=== PATIENT | male | born 1995 | race Caucasian/White ===

== ENCOUNTER 2017-06-07 16:10 | Emergency (ER) | payer OTHER ==
[~2017-06-07] VITALS: Ht 165.1 cm; Wt 67.8 kg
[2017-06-07 16:17] VITALS: TEMP 37.6; Ht 165.1 cm; Wt 67.8 kg
[2017-06-07 17:10] VITALS: O2SAT 96
[2017-06-07] MEDS ORDERED: KETOROLAC TROMETHAMINE 30 MG/ML VIAL IV STA (17:18)
[2017-06-07] MEDS ORDERED: SODIUM CHLORIDE 0.9% 1000ML 1,000 ML IV ONE (17:30)
[2017-06-07 18:20] LABS: BASO % 0.1 %; BASO ABS # 0.01 K/uL (0-0.2); COMPLETE YES; HEMATOCRIT 49.4 % (42-52); IG% 0.2 %; LYMPH % 11.5 %; LYMPH ABS # 1.17 K/uL (1.2-3.4); MEAN CELL VOLUME 85.6 fL (80-100); MEAN CORPUSCULAR HEMOGLOBIN 30.2 pg (25-34); MEAN CORPUSCULAR HGB CONC 35.2 g/dl (32-36); MEAN PLATELET VOLUME 9.8 fL (7.4-10.4); MONO % 3.7 %; NEUT % 84.5 %; PLATELET COUNT 315 K/uL (130-400); RED BLOOD COUNT 5.77 M/uL (4.7-6.1); WHITE BLOOD COUNT 10.19 K/uL (4.8-10.8)
[2017-06-07 18:24] LABS: POINT OF CARE TROPONIN I < 0.030 ng/ml (0-0.045)
[2017-06-07 18:39] LABS: BUN/CREATININE RATIO 6.7 (10-20); CALCIUM 9.3 mg/dl (8.5-10.1); MAGNESIUM 2.4 mg/dl (1.8-2.4); POTASSIUM 3.6 mmol/L (3.5-5.1)
[2017-06-07 18:50] LABS: ALB/GLOB RATIO 1.4 (0.9-2); THYROID STIMULATING HORMONE 1.06 uIu/ml (0.300-4.500)
[2017-06-07 19:07] VITALS: BP 144/78; PULSE 108; O2SAT 98
--- NOTE | 2017-06-07 22:02 | EMERGENCY ROOM VISIT NOTE ---
History First contact with patient: 17:04 Chief Complaint: CHEST PAIN Stated Complaint: CHEST PAIN- [facility] REFERRED Nursing Triage Summary: Pt. reports chest pain and shortness of breath with activity starting on tuesday. History of Present Illness The patient is a 21 year old male who presents to the Emergency Room with complaints of chest pain and shortness of breath after wrestling with a friend 2 days ago. The patient states that he has central chest pain without radiation as well as some shortness of breath. The patient went to an urgent care clinic just a few hours ago where EKG and chest x-ray were normal. He was referred to the ER for further evaluation. The patient does report traveling to [place] in the past 2 months. He does not have a history of DVT or PE. No fever or recent illness. He has not taken anything [id number] for his discomfort which he rates an intermittent 7/10. Review of Systems More than 10 systems were reviewed and otherwise negative with the exception of history of present illness. Past Medical/Surgical History No chronic medical disease Family History No pertinent family history Social History Smoking Status: Never Smoker Current/Historical Medications No Active Prescriptions or Reported Meds Physical Exam Vital Signs Date Time Temp Pulse Resp B/P (MAP) Pulse Ox O2 Delivery O2 Flow Rate FiO2 06/07/17 19:07 108 18 144/78 98 06/07/17 17:55 100 24 153/68 99 Room Air 06/07/17 17:22 90 06/07/17 17:10 96 Room Air 06/07/17 17:10 96 Room Air 06/07/17 16:17 37.6 106 18 155/77 97 Room Air Pain Rating (0-10): 0 Physical Exam VITALS: Vitals are noted on the nurse's note and reviewed by myself. Vital signs stable. GENERAL: Well-developed, well-nourished, white male, who is in no acute distress and resting comfortably. Patient is cooperative with the examination. HEAD: Normocephalic atraumatic. EARS: External ear normal. External auditory canals clear, tympanic membranes pearly vicente without erythema or effusion bilaterally. EYES: Pupils equal round and reactive to light and accommodation. Conjunctivae without injection, sclerae without icterus. Extraocular movements intact. NOSE: Patent, turbinates without inflammation or discharge. MOUTH: Mucous membranes moist. Tonsils are not enlarged. Pharynx without erythema, blood, or exudate. Uvula midline. Airway patent. NECK: Supple without nuchal rigidity. No lymphadenopathy. No thyromegaly. Cervical spine is nontender. HEART: Regular rate and rhythm without murmurs gallops or rubs. LUNGS: Clear to auscultation bilaterally without wheezes, rales or rhonchi. No retractions or accessory muscle use. ABDOMEN: Positive normal bowel sounds x 4. Soft, nontender, without masses or organomegaly. No guarding or rebound tenderness. MUSCULOSKELETAL: No muscle atrophy, erythema, or edema noted. Full range of motion without joint tenderness in all extremities. No tenderness to palpation. Medical Decision & Procedures Laboratory Results 06/07/17 17:45 Red Blood Count 5.77, Mean Corpuscular Volume 85.6, Mean Corpuscular Hemoglobin 30.2, Mean Corpuscular Hemoglobin Concent 35.2, Mean Platelet Volume 9.8, Neutrophils (%) (Auto) 84.5, Lymphocytes (%) (Auto) 11.5, Monocytes (%) (Auto) 3.7, Eosinophils (%) (Auto) 0.0, Basophils (%) (Auto) 0.1, Neutrophils # (Auto) 8.61, Lymphocytes # (Auto) 1.17, Monocytes # (Auto) 0.38, Eosinophils # (Auto) 0.00, Basophils # (Auto) 0.01 06/07/17 17:45 Test 06/07/17 17:45 06/07/17 18:07 White Blood Count 10.19 K/uL (4.8-10.8) Red Blood Count 5.77 M/uL (4.7-6.1) Hemoglobin 17.4 g/dL (14.0-18.0) Hematocrit 49.4 % (42-52) Mean Corpuscular Volume 85.6 fL (80-100) Mean Corpuscular Hemoglobin 30.2 pg (25-34) Mean Corpuscular Hemoglobin Concent 35.2 g/dl (32-36) Platelet Count 315 K/uL (130-400) Mean Platelet Volume 9.8 fL (7.4-10.4) Neutrophils (%) (Auto) 84.5 % Lymphocytes (%) (Auto) 11.5 % Monocytes (%) (Auto) 3.7 % Eosinophils (%) (Auto) 0.0 % Basophils (%) (Auto) 0.1 % Neutrophils # (Auto) 8.61 K/uL (1.4-6.5) Lymphocytes # (Auto) 1.17 K/uL (1.2-3.4) Monocytes # (Auto) 0.38 K/uL (0.11-0.59) Eosinophils # (Auto) 0.00 K/uL (0-0.5) Basophils # (Auto) 0.01 K/uL (0-0.2) RDW Standard Deviation 37.2 fL (36.4-46.3) RDW Coefficient of Variation 11.9 % (11.5-14.5) Immature Granulocyte % (Auto) 0.2 % Immature Granulocyte # (Auto) 0.02 K/uL (0.00-0.02) Anion Gap 8.0 mmol/L (3-11) Est Creatinine Clear Calc Drug Dose 103.4 ml/min Estimated GFR () 125.9 Estimated GFR (Non- 108.6 BUN/Creatinine Ratio 6.7 (10-20) Calcium Level 9.3 mg/dl (8.5-10.1) Magnesium Level 2.4 mg/dl (1.8-2.4) Total Bilirubin 0.6 mg/dl (0.2-1) Aspartate Amino Transf (AST/SGOT) 17 U/L (15-37) Alanine Aminotransferase (ALT/SGPT) 25 U/L (12-78) Alkaline Phosphatase 76 U/L (45-117) Total Protein 8.6 gm/dl (6.4-8.2) Albumin 5.0 gm/dl (3.4-5.0) Globulin 3.6 gm/dl (2.5-4.0) Albumin/Globulin Ratio 1.4 (0.9-2) Lipase 81 U/L (73-393) Thyroid Stimulating Hormone (TSH) 1.060 uIu/ml (0.300-4.500) Bedside D-Dimer 107 ng/mlFEU (0-450) Bedside Troponin I < 0.030 ng/ml (0-0.045) Medications Administered Medications (Trade) Dose Ordered Sig/Kelsey Route Start Time Stop Time Status Last Admin Dose Admin Sodium Chloride 1,000 ml @ 999 mls/hr Q1H1M ONCE IV 06/07/17 17:30 06/07/17 18:30 DC 06/07/17 17:52 999 MLS/HR Ketorolac Tromethamine (Toradol Inj) 30 mg NOW STAT IV 06/07/17 17:18 06/07/17 17:19 DC 06/07/17 17:53 30 MG ECG Change: Sinus tachycardia @103bpm Otherwise normal ECG No previous ECGs available Confirmed by YONG MAR ([id number]) on 06/07/2017 7:33:22 PM ED Course Physical exam and history were performed. Nursing notes, EMR, and Medication List were personally reviewed. Patient appears to have intermittent central chest pain for the past 2 days after wrestling with a friend. EKG was performed and was sinus tachycardia 103 bpm as above. He did have an outpatient x-ray which was read by radiology as showing no acute process. IV access was established and labs were obtained. Patient was hydrated with normal saline. He is placed on monitor and storage bin tender. He was given 30 g IV Toradol. The patient's blood work is as above and was reviewed. He does not have a significantly elevated white blood cell count or gross anemia, bandemia, or significant electrolyte imbalance. Lipase and transaminases are nondiagnostic. Troponin and d-dimer are both negative. The patient was reevaluated multiple times with course of his stay. He felt well and certainly did not appear toxic in any point in his stay. I suspect his symptoms are related to a musculoskeletal etiology and should improve with conservative measures. The patient was otherwise asked to follow with his PCP in the next week for recheck. I did ask him to return if he had any worsening symptoms and he was pleased with this plan. He rated his discomfort a 0/10 at the time of departure. The chart was completed utilizing [employer] Speech Voice Recognition Software. Grammatical errors, random word insertions, pronoun errors, and incomplete sentences are an occasional consequence of this system due to software limitations, ambient noise, and hardware issues. Any formal questions or concerns about the content, text, or information contained within the body of this dictation should be directly addressed to the provider for clarification. . Medical Decision Differential diagnosis includes, but is not limited to: Myocardial infarction, dysrhythmia, pericarditis, pneumothorax, aortic aneurysm/dissection, DVT/PE, anxiety, GERD, PUD, electrolyte imbalance, thyroid disorder, pneumonia, bronchitis, pancreatitis, and others Medication Reconcilliation Current Medication List: was personally reviewed by me Blood Pressure Screening Patient's blood pressure: Normal blood pressure Impression Primary Impression: Non-cardiac chest pain Departure Information Dispostion Home / Self-Care Condition GOOD Prescriptions No Active Prescriptions or Reported Meds Referrals No Doctor, Assigned (PCP) Forms HOME CARE DOCUMENTATION FORM, School Instructions, Additional Instructions: Patient was seen and evaluated today in the emergency department fo medical care. Return to class and 06/08/2017. Please excuse. IMPORTANT VISIT INFORMATION Patient Instructions My [facility] Additional Instructions You were seen and evaluated today on an emergency basis only. This is not a substitute for, or an effort to provide, complete comprehensive medical care. It is not possible to recognize and treat all injuries or illnesses in a single emergency department visit. For this reason it is recommended that you followup with your primary care physician with any ongoing or persistent symptoms. For baseline pain relief you may alternate ibuprofen and acetaminophen every 4 hours for pain control. Take 600 mg ibuprofen (Advil) and then 4 hours later take 1000 mg acetaminophen (Tylenol). Do not take more than 3000 mg acetaminophen in a single day. You are welcome to return to the emergency department anytime with new, worsening, or concerning symptoms. School Instructions Additional School Instructions: Patient was seen and evaluated today in the emergency department for medical care. Return to class and 06/08/2017. Please excuse.
== END 2017-06-07 19:08 | disposition home or self-care (01) ==
LOC: C.EDB 16:13 → C.EDC 19:08
DX: R07.89 Other chest pain (principal)

== ENCOUNTER → 2017-10-20 | Outpatient (CLI) | payer OTHER ==
--- NOTE | 2017-10-20 14:26 | DIAGNOSTIC IMAGING REPORT ---
(TESTICULAR) SCROTUM-CONT CLINICAL HISTORY: 22 years-old Male with HYDROCELE. Acute scrotal pain COMPARISON STUDY: None available TECHNIQUE: Real-time, grayscale, and color Doppler sonography of the testes and scrotum is performed. Images are reviewed in the transverse and longitudinal planes. FINDINGS: RIGHT HEMISCROTUM: The right testis measures 3.9 x 2.5 x 2.2 cm and the parenchyma otherwise appears unremarkable. No intratesticular mass is seen. Normal-appearing arterial inflow is present within the right testicle. The right epididymal head appears normal. No varicocele or hydrocele is identified. Tiny punctate nonshadowing foci measuring up to 1 mm are noted within the bilateral testicles compatible with microcalcifications. LEFT HEMISCROTUM: The left testis measures 4.0 x 2.7 x 2.2 cm and the parenchyma otherwise appears unremarkable. No intratesticular mass is seen. Normal-appearing arterial inflow is present within the left testicle. A left epididymal head cyst measures 1.0 x 1.2 x 0.8 cm. No varicocele or hydrocele is identified. IMPRESSION: 1. A few scattered punctate microcalcifications are seen within the bilateral testicles. Testicles are otherwise unremarkable without focal mass or evidence of torsion. 2. No hydrocele identified. 3. 1.2 cm left epididymal head cyst. The above report was generated using voice recognition software. It may contain grammatical, syntax or spelling errors. Electronically signed by: Maurisio Garrido M.D. 10/20/2017 2:24 PM Dictated Date/Time: 10/20/2017 2:21 PM
== END | disposition home or self-care (01) ==
LOC: C.ULTR 13:28
PROVIDERS: ATTEND Urology
DX: N50.3 Cyst of epididymis (principal); N43.3 Hydrocele, unspecified